=== PATIENT | female | born 1990 | race Caucasian/White ===

== ENCOUNTER 2017-04-22 08:54 | Emergency (ER) | payer SELFPAY ==
[~2017-04-22] VITALS: Ht 162.6 cm; Wt 60.8 kg
== END 2017-04-22 09:11 | disposition home or self-care (01) ==
LOC: ED 08:54
DX: H92.09 Otalgia, unspecified ear (principal)

== ENCOUNTER 2024-05-30 12:10 | Emergency (ER) | payer OTHER ==
[~2024-05-30] VITALS: Ht 162.6 cm; Wt 86.2 kg
[~2024-05-30 12:10] MED LIST: CIPRO500 MG PO; FLOMAX0.4 MG PO; HYDROCODON-ACE1 EA10 PO; MIRTAZAPINE30 MG PO; ONDANSETRON ODT8 MG PO; PRAZOSIN HCL2 MG PO; SERTRALINE HCL50 MG PO
[2024-05-30] MEDS ORDERED: TRAZODONE HCL50 MG PO (12:28)
[2024-05-30] MEDS ORDERED: LURASIDONE HCL40 MG PO (12:28)
[2024-05-30] MEDS ORDERED: SODIUM CHLORIDE 0.9% 1,000 ML IV ONE (12:45)
[2024-05-30 13:02] LABS: BASOPHILS 0.8 % (0-2); EOSINOPHILS 1.2 % (0-6); HEMATOCRIT 43.8 % (35.0-50.0); HEMOGLOBIN 14.9 g/dL (12.0-18.0); LYMPHOCYTES 28.7 % (24-44); MCH 28.3 (27-36); MCHC 33.9 g/dl (30-36); MCV 83.4 fl (81-99); MONOCYTES 5.1 % (0-12); NEUTROPHILS 64.2 % (39-80); PLATELET COUNT 234 K/uL (140-440); RBC 5.26 M/ul (4.3-5.7); RDW 14.3 (10.5-15.0)
[2024-05-30 13:18] LABS: ALBUMIN 3.6 g/dL (3.4-5.0); ALBUMIN/GLOBULIN RATIO 0.95 (1.1-2.4); ANION GAP 14.1 (7-21); BILIRUBIN, TOTAL 0.4 ng/dL (0.2-1.0); BUN/CREATININE RATIO 14.01 (6.0-28.6); CALCIUM 8.8 mg/dL (8.5-10.1); CREATININE, SERUM 1.07 mg/dL (0.55-1.02); MAGNESIUM 1.7 mg/dL (1.8-2.4); POTASSIUM 4.1 mmol/L (3.5-5.1); PROTEIN, TOTAL 7.4 g/dL (6.4-8.2)
[2024-05-30 13:56] VITALS: BP 101/73
== END 2024-05-30 13:52 | disposition home or self-care (01) ==
LOC: ED 12:10
PROVIDERS: Emergency Medicine
DX: R55 Syncope and collapse (principal); F17.200 Nicotine dependence, unspecified, uncomplicated; Z79.899 Other long term (current) drug therapy
CPT/HCPCS: 36415; 80053; 83735; 84703; 85025; 99284; J7030